=== PATIENT | male | born 1985 | race Caucasian/White ===

== ENCOUNTER 2021-09-23 10:13 | Emergency (ER) | payer OTHER ==
[~2021-09-23] VITALS: Ht 175.3 cm; Wt 102.0 kg
[2021-09-23 10:20] VITALS: BP 131/81
--- NOTE | 2021-09-23 11:00 | PHYS DOC ---
Past History Past Surgical History: No Surgical History Alcohol Use: Rarely General Adult EDM: Chief Complaint: ABDOMINAL PAIN HPI: HPI: Patient is a 35-year-old male who presents with diarrhea. Patient states on evening he started having nausea, diarrhea and low-grade fever. Patient reports that Friday afternoon diarrhea had mostly resolved. Denies fever since evening. Patient states he has been taking Imodium and Tylenol to help with symptoms. Denies exposure to illness or recent antibiotics. Patient denies nausea at this time. Denies abdominal pain. No chest pain or shortness of breath. Patient is able to keep down fluids at home. Patient states "my work stated that I had to have a work note to go back to work". Patient has no complaints at this time. Denies medical history. Immunizations are up-to-date. Review of Systems: Review of Systems: ROS At least 10 ROS systems have been reviewed and are negative except as documented in the HPI. General: Negative except as outlined in HPI above. Skin: Negative except as outlined in HPI above. HEENT: Negative except as outlined in HPI above. Neck: Negative except as outlined in HPI above. Respiratory: Negative except as outlined in HPI above.. Cardiovascular: Negative except as outlined in HPI above. Abdomen: Negative except as outlined in HPI above. : Negative except as outlined in HPI above. Back/MSK: Negative except as outlined in HPI above. Neuro: Negative except as outlined in HPI above. Psych: Negative except as outlined in HPI above. Allergies: Allergies: Allergies Coded Allergies Type Severity Reaction Last Updated Verified No Known Drug Allergies 09/23/21 No Physical Exam: PE: Constitutional: Well developed, well nourished, no acute distress, non-toxic appearance. [] HENT: bilateral external ears normal, oropharynx moist, no oral exudates, nose normal. [] Eyes: PERRLA, EOMI, conjunctiva normal, no discharge. [] Neck: Normal range of motion, no tenderness, supple, no stridor. [] Cardiovascular:Heart rate regular rhythm, no murmur [] Lungs & Thorax: Bilateral breath sounds clear to auscultation, no wheezing Abdomen: Bowel sounds normal, soft, no tenderness Skin: Warm, dry, no erythema, no rash. [] Back: No tenderness, no CVA tenderness. [] Extremities: No tenderness, no cyanosis, no clubbing, ROM intact, no edema. [] Neurologic: Alert and oriented X 3, normal motor function, normal sensory function, no focal deficits noted. [] Psychologic: Affect normal, judgement normal, mood normal. [] Current Patient Data: Vital Signs: Vital Signs Date Time Temp Pulse Resp B/P (MAP) Pulse Ox O2 Delivery O2 Flow Rate FiO2 09/23/21 10:20 98.9 92 16 131/81 (98) 99 Room Air EKG: EKG: [] Radiology/Procedures: Radiology/Procedures: [] Heart Score: C/O Chest Pain: No Risk Factors: Risk Factors: DM, Current or recent (<one month) smoker, HTN, HLP, family history of CAD, obesity. Risk Scores: Score 0 - 3: 2.5% MACE over next 6 weeks - Discharge Home Score 4 - 6: 20.3% MACE over next 6 weeks - Admit for Clinical Observation Score 7 - 10: 72.7% MACE over next 6 weeks - Early Invasive Strategies Course & Med Decision Making: Course & Med Decision Making Pertinent Labs and Imaging studies reviewed. (See chart for details) [] 35-year-old woman presents with nausea and diarrhea. Patient states symptoms started afternoon but have since resolved. Afebrile. Patient is able to keep down fluids. Denies vomiting or abdominal pain. Denies chest pain or shortness of breath. Denies any complaints at this time. Patient most likely had a gastroenteritis. Patient is requesting a work note to be able to return. Discussed return precautions with patient. Patient verbalized understanding of discharge instructions. Patient will follow up with his PCP early next week. Patient appreciative and okay with discharge plan. Jayshree Disclaimer: Jayshree Disclaimer: This electronic medical record was generated, in whole or in part, using a voice recognition dictation system. Departure Departure: Impression: Primary Impression: Diarrhea Qualified Codes: R19.7 - Diarrhea, unspecified Additional Impression: Nausea Disposition: 01 HOME / SELF CARE / HOMELESS Condition: STABLE Referrals: [facility] (PCP) Patient Instructions: Diet for Diarrhea, Adult Additional Instructions: You are seen for diarrhea and nausea. After speaking it sounds like your symptoms have been resolving. Please continue to drink plenty of fluids. I have included instructions for diet. Tylenol and ibuprofen for fevers. Return to the emergency room if you have worsening symptoms or concerns such as chest pain, abdominal pain, uncontrolled vomiting. Otherwise follow-up with your PCP next week. EMERGENCY DEPARTMENT GENERAL DISCHARGE INSTRUCTIONS Thank you for coming to [facility] (ED) today and trusting us with you care. We trust that you had a positivie experience in our Emergency Department. If you wish to speak to the department management, you may call the director at [phone]. YOUR FOLLOW UP INSTRUCTIONS ARE FOLLOWS: 1. Do you have a private Doctor? If you do not have a private doctor, please ask for a resource list of physicians or clinics that may be able to assist you with follow up care. 2. The Emergency Physician has interpreted your x-rays. The X-Ray specialist will also review them. If there is a change in the findings, you will be notified in 48 hours when at all possible. 3. A lab test or culture has been done, your results will be reviewed and you will be notified if you need a change in treatment. ADDITIONAL INSTRUCTIONS AND INFORMATION: 1. Your care today has been supervised by a physician who is specially trained in emergency care. Many problems require more than one evaluation for a complete diagnosis and treatment. We recommend that you schedule your follow up appointment as recommended to ensure complete treatment of you illness or injury. If you are unable to obtain follow up care and continue to have a problem, or if your condition worsens, we recommend that you return to the ED. 2. We are not able to safely determine your condition over the phone nor are we able to give sound medical advice over the phone. For these safety reasons, if you call for medical advice we will ask you to come to the ED for further evaluation. 3. If you have any questions regarding these discharge instructions please call the ED at [phone]. SAFETY INFORMATION: In the interest of safety, wellness, and injury prevention; we encourage you to wear your sealbelt, if you smoke; quite smoking, and we encourage family to use a protective helmet for bicycling and other sporting events that present an increased risk for head injury. IF YOUR SYMPTOMS WORSEN OR NEW SYMPTOMS DEVELOP, OR YOU HAVE CONCERNS ABOUT YOUR CONDITION; OR IF YOUR CONDITION WORSENS WHILE YOU ARE WAITING FOR YOUR FOLLOW UP APPOINTMENT; EITHER CONTACT YOUR PRIMARY CARE DOCTOR, THE PHYSICIAN WHOSE NAME AND NUMBER YOU WERE GIVEN, OR RETURN TO THE ED IMMEDIATELY. SHAUNA SULLIVAN APRN September 23, 2021 11:00
== END 2021-09-23 11:03 | disposition home or self-care (01) ==
LOC: ER 10:13
DX: R19.7 Diarrhea, unspecified (principal); R11.0 Nausea; R50.9 Fever, unspecified
CPT/HCPCS: 99282